=== PATIENT | female | born 1960 | race Caucasian/White ===

== ENCOUNTER → 2018-06-23 | Outpatient (CLI) | payer OTHER ==
[~2018-06-23] MED LIST: FISH OIL PO; HYDR25TA11 PO; LISI5TAB7 PO; METF500T17 PO; MULT-658 PO; OMEP-110 PO
== END | disposition home or self-care (01) ==
LOC: STAR 07:52
PROVIDERS: ATTEND Surgery
DX: Z01.818 Encounter for other preprocedural examination (principal); R22.1 Localized swelling, mass and lump, neck
CPT/HCPCS: 93005

== ENCOUNTER 2018-06-28 07:39 | Day surgery (SDC) | payer OTHER ==
[~2018-06-28] VITALS: Ht 165.1 cm; Wt 130.0 kg
[~2018-06-28 07:39] MED LIST changes: -FISH OIL PO; -MULT-658 PO; -OMEP-110 PO
[2018-06-28] MEDS ORDERED: SODIUM CHLORIDE 0.9% 1,000 ML IV SCH (08:12)
[2018-06-28] MEDS ORDERED: MULT-658 PO (08:30)
[2018-06-28] MEDS ORDERED: OMEP-110 PO (08:30)
[2018-06-28] MEDS ORDERED: FISH OIL PO (08:30)
[2018-06-28 08:31] VITALS: BP 139/82
[2018-06-28 09:13] LABS: INTERNATIONAL NORMALIZED RATIO 0.98 (0.93-1.1); PROTHROMBIN TIME 10.3 Seconds (9.6-11.5)
[2018-06-28] MEDS ORDERED: LIDOCAINE-MPF 1%, 5ML ONE (09:16)
[2018-06-28] MEDS ORDERED: FENTANYL PF 100 MCG/2ML ONE ×2 (10:15)
[2018-06-28] MEDS ORDERED: FLUMAZENIL 0.1 MG/1 ML, 5ML ONE (10:15)
[2018-06-28] MEDS ORDERED: MIDAZOLAM 1 MG/ML, 5ML ONE ×2 (10:15)
[2018-06-28] MEDS ORDERED: NALOXONE 1 MG/ML, 2ML ONE (10:15)
== END 2018-06-28 12:30 | disposition home or self-care (01) ==
LOC: OUT 07:39 → EDSTATUS 09:00 → OUT 12:30
PROVIDERS: ATTEND Internal Medicine Gastroenterology
DX: K76.0 Fatty (change of) liver, not elsewhere classified (principal); E11.9 Type 2 diabetes mellitus without complications; Z86.010 Personal history of colon polyps; Z98.890 Other specified postprocedural states; Z88.1 Allergy status to other antibiotic agents; Z88.8 Allergy status to other drugs, medicaments and biological substances; Z72.89 Other problems related to lifestyle; Z87.891 Personal history of nicotine dependence; Z79.84 Long term (current) use of oral hypoglycemic drugs
CPT/HCPCS: 36415; 47000; 76700; 76942; 85610; 88307; 88313; 99156; 99157; J2250; J3010; J7030; J2310

== ENCOUNTER 2018-07-03 09:44 | Day surgery (SDC) | payer OTHER ==
[~2018-07-03] VITALS: Ht 165.1 cm; Wt 129.1 kg
[~2018-07-03 09:44] MED LIST changes: +FISH OIL PO; +MULT-658 PO; +OMEP-110 PO
[2018-07-03] MEDS ORDERED: APREPITANT 40 MG CAPSULE PO ONE (10:05)
[2018-07-03] MEDS ORDERED: LACTATED RINGERS 1,000 ML IV SCH (10:06)
[2018-07-03 10:18] VITALS: BP 176/93
[2018-07-03] MEDS ORDERED: EPINEPHRINE 1 MG/ML, 1ML ONE (11:01)
[2018-07-03] MEDS ORDERED: BUPIVACAINE/PF 0.25% ONE (11:01)
[2018-07-03] MEDS ORDERED: CEFAZOLIN 1,000 MG ONE (11:03)
[2018-07-03] MEDS ORDERED: MIDAZOLAM 1 MG/ML, 2ML ONE (11:07)
[2018-07-03] MEDS ORDERED: FENTANYL PF 100 MCG/2ML ONE ×2 (11:07→11:57)
[2018-07-03] MEDS ORDERED: SUCCINYLCHOLINE 20 MG/ML, 10ML ONE (11:11)
[2018-07-03] MEDS ORDERED: PROPOFOL 10 MG/ML, 20ML ONE (11:11)
[2018-07-03] MEDS ORDERED: LIDOCAINE-MPF 2% ,5ML ONE (11:11)
[2018-07-03] MEDS ORDERED: ROCURONIUM 10MG/ML,5ML ONE (11:11)
[2018-07-03] MEDS ORDERED: SUGAMMADEX 200 MG/2 ML IVPush ONE ×2 (11:27)
[2018-07-03] MEDS: OXYcodone 5 MG/5 ML ORAL.SOL UDC PO PRN ×2 (11:52→12:54)
[2018-07-03] MEDS ORDERED: OXYcodone 5 MG/5 ML ORAL.SOL UDC ONE (11:57)
[2018-07-03] MEDS ORDERED: MEPERIDINE/PF 25MG/0.5ML IVPush PRN (12:00)
[2018-07-03] MEDS ORDERED: FENTANYL PF 100 MCG/2ML IV PRN (12:00)
[2018-07-03] MEDS ORDERED: MORPHINE SULFATE 4 MG/ML, 1ML IVPush PRN (12:00)
[2018-07-03] MEDS ORDERED: KETOROLAC 30 MG/1 ML IV PRN ×2 (12:00)
[2018-07-03] MEDS ORDERED: HYDROmorphone 2 MG/ML, 1ML IVPush PRN (12:00)
[2018-07-03] MEDS ORDERED: KETOROLAC 30 MG/1 ML IM PRN ×2 (12:00)
== END 2018-07-03 14:15 | disposition home or self-care (01) ==
LOC: OUT 09:44
PROVIDERS: ATTEND Surgery
DX: M79.89 Other specified soft tissue disorders (principal); R59.1 Generalized enlarged lymph nodes; E11.9 Type 2 diabetes mellitus without complications; Z79.899 Other long term (current) drug therapy; Z79.84 Long term (current) use of oral hypoglycemic drugs; Z98.890 Other specified postprocedural states; Z79.82 Long term (current) use of aspirin; Z72.89 Other problems related to lifestyle
CPT/HCPCS: 21552; 82962; 88305; J0171; J0330; J0690; J2250; J2704; J3010; J3490; J7120; J8501

== ENCOUNTER → 2020-07-18 | Outpatient (CLI) | payer OTHER ==
[~2020-07-18] MED LIST changes: +HYDR-826 PO; -HYDR25TA11 PO; +NORT25CA78 PO; +[UNRECOGNIZED DRUG - CODE] PO
[2020-07-18 14:04] LABS: ALANINE AMINOTRANSFERASE 31 U/L (12-78); ALBUMIN 3.9 g/dL (3.4-5.0); CALCIUM 9.6 mg/dL (8.5-10.1)
[2020-07-18 14:09] LABS: ALKALINE PHOSPHATASE 136 U/L (45-117); ANION GAP 7 mmol/L (5-15); BILIRUBIN,TOTAL 0.6 mg/dL (0.2-1.0); CHLORIDE 107 mmol/L (98-107); TOTAL PROTEIN 7.5 g/dL (6.4-8.2)
== END | disposition home or self-care (01) ==
LOC: STAR 12:59
PROVIDERS: ATTEND Internal Medicine Gastroenterology
DX: Z01.818 Encounter for other preprocedural examination (principal); K76.0 Fatty (change of) liver, not elsewhere classified; Z20.822 Contact with and (suspected) exposure to COVID-19
CPT/HCPCS: 36415; 80053; 93005; U0003; U0005

== ENCOUNTER → 2020-10-03 | Outpatient (CLI) | payer OTHER ==
[2020-10-03 11:34] LABS: ALANINE AMINOTRANSFERASE 78 U/L (12-78); ANION GAP 5 mmol/L (5-15); CALCIUM 9.6 mg/dL (8.5-10.1); CHLORIDE 107 mmol/L (98-107)
[2020-10-03 11:36] LABS: ALKALINE PHOSPHATASE 129 U/L (45-117); BILIRUBIN,TOTAL 0.8 mg/dL (0.2-1.0); TOTAL PROTEIN 7.8 g/dL (6.4-8.2)
== END | disposition home or self-care (01) ==
LOC: STAR 10:37
PROVIDERS: ATTEND Internal Medicine Gastroenterology
DX: Z01.818 Encounter for other preprocedural examination (principal); Z86.010 Personal history of colon polyps; Z68.42 Body mass index [BMI] 45.0-49.9, adult
CPT/HCPCS: 36415; 80053

== ENCOUNTER 2020-10-07 11:02 | Day surgery (SDC) | payer OTHER ==
[~2020-10-07] VITALS: Ht 165.1 cm; Wt 126.7 kg
[2020-10-07 11:28] VITALS: BP 164/86
[2020-10-07 11:31] VITALS: BP 164/86
[2020-10-07] MEDS ORDERED: CHLORHEXIDINE 15 ML UDC ONE (11:34)
[2020-10-07] MEDS ORDERED: CHLORHEXIDINE 15 ML UDC PO ONE (12:00)
[2020-10-07] MEDS ORDERED: LACTATED RINGERS 1,000 ML IV SCH (12:00)
[2020-10-07] MEDS ORDERED: MIDAZOLAM 1 MG/ML, 2ML ONE (12:40)
[2020-10-07] MEDS ORDERED: PROPOFOL 50 ML ONE (12:41)
[2020-10-07] MEDS ORDERED: FENTANYL PF 100 MCG/2ML IV PRN (13:00)
[2020-10-07] MEDS ORDERED: LABETALOL 5MG/ML, 20ML IV PRN (14:00)
== END 2020-10-07 14:50 | disposition home or self-care (01) ==
LOC: OUT 11:02
PROVIDERS: ATTEND Internal Medicine Gastroenterology
DX: Z12.11 Encounter for screening for malignant neoplasm of colon (principal); K57.30 Diverticulosis of large intestine without perforation or abscess without bleeding; E11.9 Type 2 diabetes mellitus without complications; I10 Essential (primary) hypertension; E66.01 Morbid (severe) obesity due to excess calories; Z68.42 Body mass index [BMI] 45.0-49.9, adult; Z79.899 Other long term (current) drug therapy; Z86.010 Personal history of colon polyps; Z88.2 Allergy status to sulfonamides; Z88.8 Allergy status to other drugs, medicaments and biological substances
CPT/HCPCS: 45378; 82962; J2250; J2704; J7120